=== PATIENT | female | born 1980 | race Caucasian/White ===

== ENCOUNTER 2022-05-31 03:40 | Emergency (ER) | payer MEDICAID ==
[2022-05-31 04:36] VITALS: BP 154/97; PULSE 110
== END 2022-05-31 04:25 ==
LOC: VM.ED 03:40
DX: R45.1 Restlessness and agitation (principal); F10.929 Alcohol use, unspecified with intoxication, unspecified
CPT/HCPCS: 99283; 99284

== ENCOUNTER 2023-07-28 10:57 | Emergency (ER) | payer MEDICAID ==
[2023-07-28 11:05] VITALS: BP 138/86; PULSE 113
[2023-07-28] MEDS: Ketorolac 30 MG/ML SDV IVPUSH ONE (11:18)
[2023-07-28] MEDS: Ketorolac 30 MG/ML SDV IM ONE (11:18)
== END 2023-07-28 11:23 | disposition home or self-care (01) ==
LOC: VM.ED 10:57
DX: K02.9 Dental caries, unspecified (principal)
CPT/HCPCS: 96372; 99282; J1885

== ENCOUNTER 2023-09-05 03:10 | Emergency (ER) | payer MEDICAID ==
[2023-09-05 03:21] VITALS: BP 100/60; PULSE 102
[2023-09-05] MEDS: Acetaminophen/Codeine 300-30 MG Tab PO ONE (03:29)
[2023-09-05] MEDS: Ciprofloxacin 0.3% Ophth Soln 2.5 ML Bottle EARLF ONE (03:34)
== END 2023-09-05 03:50 | disposition home or self-care (01) ==
LOC: VM.ED 03:10
DX: H60.502 Unspecified acute noninfective otitis externa, left ear (principal)
CPT/HCPCS: 99282; 99283; A9270

== ENCOUNTER 2024-07-15 20:01 | Emergency (ER) | payer MEDICAID ==
[2024-07-15 20:14] VITALS: BP 139/83; PULSE 118
[2024-07-15] MEDS: Cephalexin 500 MG Cap PO ONE (20:23)
[2024-07-15] MEDS: Sulfamethoxazole/Trimethoprim 800-160 MG Tab PO ONE (20:23)
== END 2024-07-15 20:34 | disposition home or self-care (01) ==
LOC: VM.ED 20:01 → SUPCPDRO 20:01 → VM.ED 20:34
DX: L03.011 Cellulitis of right finger (principal); Z79.899 Other long term (current) drug therapy
CPT/HCPCS: 99283; A9270